=== PATIENT | male | born 1980 | race Caucasian/White ===

== ENCOUNTER 2019-02-25 16:58 | Emergency (ER) | payer SELFPAY ==
[2019-02-25 17:01] VITALS: BP 137/65; BMI 37.6
[2019-02-25] MEDS ORDERED: AUGMENTIN 875-11 TAB PO (18:09)
== END 2019-02-25 18:20 | disposition home or self-care (01) ==
LOC: D.ER 16:58
DX: L03.115 Cellulitis of right lower limb (principal)

== ENCOUNTER → 2020-11-27 13:29 | Outpatient (CLI) | payer OTHER ==
[~2020-11-27 13:29] MED LIST: AUGMENTIN 875-11 TAB PO
== END | disposition home or self-care (01) ==
LOC: D.US 13:29
PROVIDERS: ATTEND Nurse Practitioner
DX: R11.2 Nausea with vomiting, unspecified (principal)

== ENCOUNTER → 2020-12-04 12:45 | Outpatient (CLI) | payer OTHER ==
[2020-12-04 13:25] LABS: INR 0.9 (0.85-1.17); PROTIME 11.2 SECONDS (11.6-15.0)
[2020-12-04 13:31] LABS: ALBUMIN 3.7 g/dL (3.4-5.0); BILIRUBIN - DIRECT 0.08 mg/dL (0.00-0.30); BILIRUBIN - INDIRECT 0.26 mg/dL (0.00-1.00); BILIRUBIN - TOTAL 0.34 mg/dL (0.2-1.3); PROTEIN - SERUM 7.8 g/dL (6.4-8.2)
[2020-12-05 09:11] LABS: HEPATITIS C ANTIBODY <0.1 (0.0-0.9)
== END | disposition home or self-care (01) ==
LOC: D.NM 12:45
PROVIDERS: ATTEND Nurse Practitioner
DX: R11.2 Nausea with vomiting, unspecified (principal); K76.0 Fatty (change of) liver, not elsewhere classified